=== PATIENT | male | born 1930 | race Caucasian/White ===

== ENCOUNTER 2016-10-10 20:01 | Emergency (ER) | payer OTHER ==
[2016-10-10 20:33] VITALS: BP 134/69; PULSE 51; TEMP 97.5; BMI 20.9
--- NOTE | 2016-10-10 20:36 | PDOC ---
History of Present Illness - General Chief Complaint: Nausea/Vomiting Stated Complaint: Nausea/Vomiting ABD PAIN Time Seen by Provider: 10/10/16 20:32 - History of Present Illness Initial Comments: 10/10/16 21:28 Patient is an 85-year-old male with past medical history of hypertension, BPH, arthritis, dementia, HLD who presents to emergency department today after an episode of vomiting and low blood pressure. He has a his healthcare proxy at the bedside. His healthcare proxy states that this evening at dinner he was eating when he appeared diaphoretic and lightheaded. They brought him back to his room in the [facility] where he vomited and his heart rate was in the 40s. Since patient has been in the emergency department he states that he feels much better he is not nauseous at this time and complains of no abdominal pain. Denies chest pain, shortness of breath, fevers, chills, weakness, malaise, shortness of breath, cough, urgency, dysuria, hematuria, constipation or blood in the stool. Past History - Past Medical History Allergies/Adverse Reactions: Allergies Allergy/AdvReac Type Severity Reaction Status Date / Time No Known Allergies Allergy Verified 10/10/16 21:13 Home Medications: Ambulatory Orders Calcium Carbonate [Calcium] 1 tab PO DAILY 10/10/16 Celecoxib [Celebrex] 200 mg PO DAILY 10/10/16 Cholecalciferol (Vitamin D3) [Vitamin D3 -] 1,000 unit PO DAILY 10/10/16 Donepezil HCl [Aricept] 10 mg PO DAILY 10/10/16 Finasteride 5 mg PO DAILY 10/10/16 Folic Acid 1 tab PO DAILY 10/10/16 Glucosamine Sulfate Dipot Chlr [Glucosamine] 1,000 mg PO BID 10/10/16 Labetalol HCl 100 mg PO BID 10/10/16 Olmesartan/Hydrochlorothiazide [Benicar Hct 40-25 mg Tablet] 1 each PO DAILY [place]-3 Acid Ethyl Esters [Lovaza] 2 g PO BID 10/10/16 Tamsulosin HCl [Flomax] 0.4 mg PO AC 10/10/16 Vitamin B1 600 mg PO BID 10/10/16 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, basal cell left ear) Dementia: Yes HTN: Yes Hypercholesterolemia: Yes Other medical history: bph,arthritis - Surgical History Appendectomy: Yes - Psycho/Social/Smoking Cessation Hx Suicidal Ideation: No Smoking History: Never smoked Review of Systems - Review of Systems Comments:: 10/10/16 21:28 CONSTITUTIONAL: Absent: fever, chills, diaphoresis, generalized weakness, malaise, loss of appetite HEENT: Absent: rhinorrhea, nasal congestion, throat pain, throat swelling, difficulty swallowing, mouth swelling, ear pain, eye pain, visual Changes CARDIOVASCULAR: Absent: chest pain, loss of consciousness, palpitations, irregular heart rate, peripheral edema RESPIRATORY: Absent: cough, shortness of breath, dyspnea with exertion, orthopnea, wheezing, stridor, hemoptysis GASTROINTESTINAL: Absent: abdominal pain, abdominal distension, nausea, vomiting, diarrhea, constipation, melena, hematochezia GENITOURINARY: Absent: dysuria, frequency, urgency, hesitancy, hematuria, flank pain, genital pain MUSCULOSKELETAL: Absent: myalgia, arthralgia, joint swelling SKIN: Absent: rash, itching, pallor HEMATOLOGIC/IMMUNOLOGIC: Absent: easy bleeding, easy bruising, lymphadenopathy, frequent infections ENDOCRINE: Absent: unexplained weight gain, unexplained weight loss, heat intolerance, cold intolerance NEUROLOGIC: Absent: headache, focal weakness or paresthesias, dizziness, unsteady gait, seizure, mental status changes, bladder or bowel incontinence PSYCHIATRIC: Absent: anxiety, depression, suicidal or homicidal ideation, hallucinations. *Physical Exam - Vital Signs Last Vital Signs Temp Pulse Resp BP Pulse Ox 97.5 F L 51 L 18 134/69 98 10/10/16 20:29 10/10/16 20:29 10/10/16 20:29 10/10/16 20:29 10/10/16 20:29 - Physical Exam Comments: 10/10/16 21:28 GENERAL: Well developed, well nourished. Awake and alert. No acute distress. HEENT: Normocephalic, atraumatic. PERRLA, EOMI. No conjunctival pallor. Sclera are non- icteric. Moist mucous membranes. Oropharynx is clear. NECK: Supple. Full ROM. No JVD. Carotid pulses 2+ and symmetric, without bruits. No thyromegaly. No lymphadenopathy. CARDIOVASCULAR: Regular rate and rhythm. III/ holosystolic murmur thorough all cardiac lilly. No rubs, or gallops. Distal pulses are 2+ and symmetric. PULMONARY: No evidence of respiratory distress. Lungs clear to auscultation bilaterally. No wheezing, rales or rhonchi. ABDOMINAL: Soft. Non-tender. Non-distended. No rebound or guarding. No organomegaly. Normoactive bowel sounds. MUSCULOSKELETAL Normal range of motion at all joints. No bony deformities or tenderness. No CVA tenderness. EXTREMITIES: No cyanosis. No clubbing. No edema. No calf tenderness. SKIN: Warm and dry. Normal capillary refill. No rashes. No jaundice. NEUROLOGICAL: Alert, awake, appropriate. Cranial nerves 2-12 intact. No deficits to light touch and temperature in face, upper extremities and lower extremities. No motor deficits in the in face, upper extremities and lower extremities. Normoreflexic in the upper and lower extremities. Normal speech. Toes are down- going bilaterally. Gait is normal without ataxia. PSYCHIATRIC: Cooperative. Good eye contact. Appropriate mood and affect. ED Treatment Course - LABORATORY CBC & Chemistry Diagram: 10/10/16 Unknown 10/10/16 Unknown Medical Decision Making - Medical Decision Making 10/10/16 21:38 Patient is an 85-year-old male with past medical history of hypertension, BPH, arthritis, dementia, HLD who presents to emergency department today after an episode of vomiting and low blood pressure. Patient states that he feels much better at this time. However we will treat this as a episodic vomiting. Visit will rule out ACS, abdominal etiology. 1.CBC, CMP, PT/INR, lipase, cardiac profile, UA, UC 2.EKG, CXR 3.IV fluids 4.reevaluate. 10/10/16 22:15 EKG shows a rate of 59 bpm normal intervals, left axis deviation. Sinus rhythm with a first-degree block. Right bundle branch block. No acute ST-T wave changes. LVH. 10/11/16 00:14 Lab work shows a mildly elevated white blood cell count of 13. Could be a reaction to the vomiting. All other labs are within normal limits at this time. Troponin is negative. Urine was lost in the lab. We'll send a new sample. 10/11/16 01:01 Patient's urine shows no evidence of infection. 10/11/16 01:29 Chest x-ray shows no evidence of infiltration, increased interstitial markings. Patient states he feels much better since arriving in the emergency department. He denies current nausea or vomiting and states that he feels like himself. Given all negative labs, we will discharge home at this time. Most likely a near syncopal event d/t vomiting and dehydration. Patient is to eat a bland diet and drink plenty of fluids for the next 24-48 hours. Given return instructions if he experiences worsening nausea, vomiting weakness, fevers or chills. Patient understands all discharge instructions and all questions were answered at this time. *DC/Admit/Observation/Transfer Diagnosis at time of Disposition: Vomiting Qualifiers: Vomiting type: unspecified Vomiting Intractability: non-intractable Nausea presence: without nausea Qualified Code(s): R11.11 - Vomiting without nausea - Discharge Dispostion Admit: No - Referrals Referrals: Eric Mckenzie [Primary Care Provider] - - Patient Instructions Printed Discharge Instructions: DI for Vomiting -- Adult Additional Instructions: Your work up today was negative. Eat a bland diet and drink plenty of fluids for the next couple of days. Follow up with your primary care doctor tomorrow. If you have worsening vomiting, dizziness, weakness, chills, fevers, or any changes in your symptoms, return to the ED.
[2016-10-10] MEDS ORDERED: SODIUM CHLORIDE 1,000 ML IV STA (20:56)
--- NOTE | 2016-10-10 20:59 | PDOC ---
*Physical Exam - Vital Signs Last Vital Signs Temp Pulse Resp BP Pulse Ox 97.5 F L 51 L 18 134/69 98 10/10/16 20:29 10/10/16 20:29 10/10/16 20:29 10/10/16 20:29 10/10/16 20:29 ED Treatment Course - LABORATORY CBC & Chemistry Diagram: 10/10/16 Unknown 10/10/16 Unknown Medical Decision Making - Medical Decision Making 10/10/16 20:59 agree with care from TASHIA Zamorano *DC/Admit/Observation/Transfer Diagnosis at time of Disposition: Vomiting - Referrals Referrals: Eric Mckenzie [Primary Care Provider] - - Patient Instructions Printed Discharge Instructions: DI for Vomiting -- Adult Additional Instructions: Your work up today was negative. Eat a bland diet and drink plenty of fluids for the next couple of days. Follow up with your primary care doctor tomorrow. If you have worsening vomiting, dizziness, weakness, chills, fevers, or any changes in your symptoms, return to the ED.
[2016-10-10 21:33] LABS: BASOPHIL 0.4 % (0-2.0); EOSINOPHIL 2.9 % (0-4.5); MCH 31.9 pg (25.7-33.7); MCHC 33.2 g/dl (32.0-35.9); MEAN CELL VOLUME 96.2 fl (80-96); MEAN PLT VOLUME 7.2 fl (7.5-11.1); PLATELET COUNT 212 K/MM3 (134-434); RDW 13.4 % (11.9-15.9); WHITE BLOOD COUNT 13.4 K/mm3 (4.0-10.0)
[2016-10-10 21:51] LABS: INR 1.1 (0.82-1.09); PROTHROMBIN TIME (PATIENT) 12.1 SEC (9.98-11.88)
[2016-10-10 22:03] LABS: ALBUMIN 3.7 g/dl (3.4-5.0); ANION GAP 13 (8-16); CALCIUM 9.4 mg/dL (8.5-10.1); CO2 26 mmol/L (21-32); CREATININE 1.1 mg/dL (0.7-1.3); GLUCOSE,RANDOM 100 mg/dL (74-106); SGOT/AST 16 U/L (15-37); SGPT/ALT 16 U/L (12-78)
[2016-10-10 22:05] LABS: ALK PHOS 81 U/L (45-117); BILIRUBIN,TOTAL 0.9 mg/dL (0.2-1.0); TOT PROT 6.6 g/dl (6.4-8.2); TROPONIN I < 0.02 ng/ml (0.00-0.05)
[2016-10-10 22:55] LABS: URINE APPEARANCE CLEAR; URINE BILIRUBIN NEGATIVE (NEGATIVE); URINE BLOOD NEGATIVE (NEGATIVE); URINE COLOR YELLOW; URINE GLUCOSE (UA) NEGATIVE (NEGATIVE); URINE KETONE TRACE (NEGATIVE); URINE LEUK ESTERASE NEGATIVE (NEGATIVE); URINE NITRITE NEGATIVE (NEGATIVE); URINE PROTEIN NEGATIVE (NEGATIVE); URINE UROBILINOGEN NEGATIVE mg/dL (0.2-1.0)
--- NOTE | 2016-10-11 11:53 | EKG ---
Test Reason : Blood Pressure : / mmHG Vent. Rate : 059 BPM Atrial Rate : 059 BPM P-R Int : 238 ms QRS Dur : 160 ms QT Int : 534 ms P-R-T Axes : 053 -42 -82 degrees QTc Int : 528 ms SINUS BRADYCARDIA WITH 1ST DEGREE A-V BLOCK LEFT AXIS DEVIATION RIGHT BUNDLE BRANCH BLOCK LEFT VENTRICULAR HYPERTROPHY WITH REPOLARIZATION ABNORMALITY CANNOT RULE OUT SEPTAL INFARCT , AGE UNDETERMINED ABNORMAL ECG WHEN COMPARED WITH ECG OF 25-MAY-2006 15:59, [place] INTERVAL HAS INCREASED T WAVE INVERSION MORE EVIDENT IN INFERIOR LEADS T WAVE INVERSION NOW EVIDENT IN LATERAL LEADS Confirmed by ARACELI RICHARDSON MD ([id number]) on 10/11/2016 11:53:22 AM Referred By: Confirmed By:ARACELI RICHARDSON MD
== END 2016-10-11 01:03 | disposition home or self-care (01) ==
LOC: JER 20:01
PROC: 3E0337Z Introduction of Electrolytic and Water Balance Substance into Peripheral Vein, Percutaneous Approach (ICD-10-PCS; principal; 2016-10-10)
DX: R11.10 Vomiting, unspecified (principal); I10 Essential (primary) hypertension; N40.0 Benign prostatic hyperplasia without lower urinary tract symptoms; F03.90 Unspecified dementia, unspecified severity, without behavioral disturbance, psychotic disturbance, mood disturbance, and anxiety; M12.9 Arthropathy, unspecified
CPT/HCPCS: 36415; 71020-TC; 80053; 81003; 82550; 83690; 84484; 85025; 85610; 93005; 93010; 99282-25

== ENCOUNTER 2016-12-17 20:14 | Emergency (ER) | payer OTHER ==
[2016-12-17 20:36] VITALS: BP 122/53; PULSE 63; TEMP 98.9; BMI 26.6
--- NOTE | 2016-12-17 20:48 | PDOC ---
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 He is woth another member of his order who saw the pt tripped on his robe. There was no head trauma, No LOC lungs cta b/l cvr [id number] abd soft,nontender extremities- there is a l shaped 5cm laceration above the right elbow. no arm deformity, neurovascularly intact neuro alert, conversant,moving all extremities - Medical Decision Making 12/17/16 20:57 plan wound will be cleansed and closed w sutures.
--- NOTE | 2016-12-17 21:33 | PDOC ---
History of Present Illness - General Chief Complaint: Injury Stated Complaint: FALL Time Seen by Provider: 12/17/16 20:41 History Source: Care Provider - History of Present Illness Initial Comments: 12/17/16 21:32 Patient is an 86 y.o. male with a PMH of Dementia who presents from the [facility] following a mechanical fall. Patient tripped on his robe while walking down a flight of stair scratching his right elbow. Patient denies any head trauma or associated LOC. Past History - Past Medical History Allergies/Adverse Reactions: Allergies Allergy/AdvReac Type Severity Reaction Status Date / Time No Known Allergies Allergy Verified 12/17/16 20:36 Home Medications: Ambulatory Orders Calcium Carbonate [Calcium] 1 tab PO DAILY 10/10/16 Celecoxib [Celebrex] 200 mg PO DAILY 10/10/16 Cholecalciferol (Vitamin D3) [Vitamin D3 -] 1,000 unit PO DAILY 10/10/16 Donepezil HCl [Aricept] 10 mg PO DAILY 10/10/16 Finasteride 5 mg PO DAILY 10/10/16 Folic Acid 1 tab PO DAILY 10/10/16 Glucosamine Sulfate Dipot Chlr [Glucosamine] 1,000 mg PO BID 10/10/16 Labetalol HCl 100 mg PO BID 10/10/16 Olmesartan/Hydrochlorothiazide [Benicar Hct 40-25 mg Tablet] 1 each PO DAILY [place]-3 Acid Ethyl Esters [Lovaza] 2 g PO BID 10/10/16 Tamsulosin HCl [Flomax] 0.4 mg PO AC 10/10/16 Thiamine HCl [Vitamin B1] 600 mg PO BID 10/10/16 Cancer: Yes (squamous cell forearm foot, 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 Knee - Surgical History Abdominal Surgery: Yes (r/o polyp via sigmoidoscopy) Appendectomy: Yes - Immunization History Td Vaccination: No TDAP Vaccination: No Immunization Up to Date: No - Suicide/Smoking/Psychosocial Hx Smoking History: Never smoked Have you smoked in the past 12 months: No Information on smoking cessation initiated: No Hx Alcohol Use: No Drug/Substance Use Hx: No Substance Use Type: None Review of Systems - Review of Systems Able to Perform ROS?: No (Dementia) *Physical Exam - Vital Signs Last Vital Signs Temp Pulse Resp BP Pulse Ox 98.9 F 63 18 122/53 100 12/17/16 20:29 12/17/16 20:29 12/17/16 20:29 12/17/16 20:29 12/17/16 20:29 - Physical Exam General Appearance: Yes: Nourished, Appropriately Dressed Neck: positive: Trachea midline, Supple Extremity: positive: Other (6 cm longitudinal abrasion on R superior to the olecranon; 3.5-4 cm superifical longitudinal abrasion inferior to R olecranon; neurovascularly intact) Medical Decision Making - Medical Decision Making 12/17/16 22:03 Patient is an 86 y.o. male who presents with two R arm laceration following a mechanical fall. Patient's 6 cm laceration was repaired using 4.0 suture with 6 simple interrupted sutures. A smaller more inferior laceration was *DC/Admit/Observation/Transfer - Discharge Dispostion Condition at time of disposition: Fair
[2016-12-17] MEDS ORDERED: TETANUS AND DIPHTHERIA TOXOID 0.5 ML DISP.SYRIN IM ONE (22:05)
== END 2016-12-17 22:21 | disposition home or self-care (01) ==
LOC: JER 20:14
PROC: 3E0234Z Introduction of Serum, Toxoid and Vaccine into Muscle, Percutaneous Approach (ICD-10-PCS; principal; 2016-12-17)
DX: S41.111A Laceration without foreign body of right upper arm, initial encounter (principal); W10.8XXA Fall (on) (from) other stairs and steps, initial encounter; Y93.89 Activity, other specified; Y92.22 Religious institution as the place of occurrence of the external cause; Y99.8 Other external cause status; I10 Essential (primary) hypertension; N40.0 Benign prostatic hyperplasia without lower urinary tract symptoms; M13.861 Other specified arthritis, right knee; F03.90 Unspecified dementia, unspecified severity, without behavioral disturbance, psychotic disturbance, mood disturbance, and anxiety; Z85.828 Personal history of other malignant neoplasm of skin
CPT/HCPCS: 90471; 90715; 99281-25

== ENCOUNTER 2018-03-15 09:35 | Emergency (ER) | payer OTHER ==
--- NOTE | 2018-03-15 09:41 | PDOC ---
History of Present Illness - General Chief Complaint: Injury Stated Complaint: FALL Time Seen by Provider: 03/15/18 09:41 - History of Present Illness Initial Comments: 03/15/18 10:14 The patient is an 87 year old male with a history of HTN, HLD, Dementia, who presents for evaluation following a fall. The patient is accompanied by his aid who assists in providing the history. They note that the patient was getting out of bed this morning when he had an unwitnessed fall with head trauma. They immediately found him and noted that he was conscious. The patient states that he tripped over his feet causing him to fall and did not lose consciousness. The patient also notes some right shoulder pain as well but otherwise denies headache, fevers, chills, SOB, chest pain, nausea, vomiting , abdominal pain, numbness, tingling, or changes with urination or bowel movements. He is currently asymptomatic. Past History - Past Medical History Allergies/Adverse Reactions: Allergies Allergy/AdvReac Type Severity Reaction Status Date / Time No Known Allergies Allergy Verified 03/15/18 10:07 Home Medications: Ambulatory Orders Calcium Carbonate [Calcium] 1 tab PO DAILY 10/10/16 Celecoxib [Celebrex] 200 mg PO DAILY 10/10/16 Cholecalciferol (Vitamin D3) [Vitamin D3 -] 1,000 unit PO DAILY 10/10/16 Donepezil HCl [Aricept] 10 mg PO DAILY 10/10/16 Finasteride 5 mg PO DAILY 10/10/16 Folic Acid 1 tab PO DAILY 10/10/16 Glucosamine Sulfate Dipot Chlr [Glucosamine] 1,000 mg PO BID 10/10/16 Labetalol HCl 100 mg PO BID 10/10/16 Olmesartan/Hydrochlorothiazide [Benicar Hct 40-25 mg Tablet] 1 each PO DAILY [place]-3 Acid Ethyl Esters [Lovaza] 2 g PO BID 10/10/16 Tamsulosin HCl [Flomax] 0.4 mg PO AC 10/10/16 Thiamine HCl [Vitamin B1] 600 mg PO BID 10/10/16 Cancer: Yes (squamous cell forearm foot, 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, basal cell left ear) Dementia: Yes HTN: Yes Hypercholesterolemia: Yes - Surgical History Abdominal Surgery: Yes (r/o polyp via sigmoidoscopy) Appendectomy: Yes - Immunization History Td Vaccination: No TDAP Vaccination: No Immunization Up to Date: No - Suicide/Smoking/Psychosocial Hx Smoking History: Never smoked Have you smoked in the past 12 months: No Hx Alcohol Use: No Drug/Substance Use Hx: No Substance Use Type: None Review of Systems - Review of Systems Comments:: 03/15/18 10:19 Constitutional: No fevers, chills, fatigue, malaise HEENT: No Rhinorrhea, nasal congestion, visual changes Cardiovascular: No chest pain, syncope, palpitations, lightheadedness Respiratory: No Cough, SOB, Hemoptysis, Gastrointestinal: No Abdominal pain, Nausea, Vomiting, Constipation, Diarrhea, Melena Genitourinary: No Dysuria, Frequency, Urgency, Hesitancy, Hematuria, Flank pain Musculoskeletal: Right shoulder pain. No Myalgia, arthralgia Skin: No rashes, itching, bruising, pallor Neurologic: No Headache, Dizziness, Numbness, Weakness, or Tingling Psychiatric: No Hallucinations. No SI or HI *Physical Exam - Physical Exam Comments: 03/15/18 10:20 General Appearance: Nourished. No Apparent Distress HEENT: EOMI, [place]. Abrasion noted to the right forehead and right lip. No Pharyngeal Erythema, Tonsillar Exudate, Tonsillar Erythema Neck: No Cervical Lymphadenopathy or C-spine tenderness. Normal ROM. Respiratory/Chest: Lungs Clear, Normal Breath Sounds. No Crackles, Rales, Rhonchi, Wheezing Cardiovascular: Regular Rhythm, Regular Rate. No Murmur, Gallops, Rubs Gastrointestinal/Abdominal: Normal Bowel Sounds, Soft. No Guarding, Rebound, Tenderness Musculoskeletal: Normal ROM in the right shoulder. No CVA Tenderness Extremity: Normal Capillary Refill Integumentary: Normal Color, Dry, Warm Neurologic: account service representative II-XII NML intact, Fully Oriented, Alert, Normal Mood/Affect, Normal Response, Motor Strength 5/5. No pronator drift. Gait at Baseline. Medical Decision Making - Medical Decision Making 03/15/18 10:21 The patient is an 87 year old male with a history of HTN, HLD, Dementia, who presents for evaluation following a fall. Differential includes but is not limited to: Contusion, Fracture, Intracranial process. Given the patient's history and physical exam, we will obtain a head CT, shoulder plain film, ekg to evaluate further. We will treat the patient with tylenol here in the ED. We will continue to monitor and reassess while here in the ED. *DC/Admit/Observation/Transfer Diagnosis at time of Disposition: Fall Qualifiers: Encounter type: initial encounter Qualified Code(s): W19.XXXA - Unspecified fall, initial encounter - Discharge Dispostion Disposition: HOME Condition at time of disposition: Stable Decision to Admit order: No - Referrals Referrals: Eric Mckenzie [Non Staff, Medical] - - Patient Instructions Printed Discharge Instructions: How to Prevent Falls, DI for Post-traumatic Headache Additional Instructions: Please return to the ER if you experience concerning or worsening symptoms including worsening difficulty breathing, weakness, or chest pain, headache, vomiting. Your xray and CT scan results were normal here in the ER. Please call to schedule a follow up appointment with your primary care provider within 2-3 days to discuss your ER visit and further management of your symptoms. - Post Discharge Activity
[2018-03-15 10:10] VITALS: BMI 23.9
--- NOTE | 2018-03-15 10:10 | PDOC ---
Attending Attestation - Resident Resident Name: Michoacano Thompson - HPI HPI: 03/15/18 10:03 87 y/o male brought into ED by EMS for evaluation s/p fall at assisted living facility. Pt is not offering any complaints.at present although he says his rt shoulder hurts. Pt denies chest pain, sob, dizziness or headache. - Physicial Exam PE: 03/15/18 10:06 HEENT: Pt with superficial abrasion and bruise noted to rt side of forehead, pupils 2mm equal and reactive,pt with small abrasion to rt lower lip Neck: supple , full rom Lungs: + bs jeanie cta Heart S1S2 regular with murmur noted Abd: + bs abd soft no guarding or tenderness Ext: pt with full rom of rt shoulder, l pulses and sensation, brusing noted to both arms old not new Neuro: awake and alert,pt with known dementia,. pt is folowing commands, no pronator drift, nl sensort and motor, pt with antalgic gait thi is his baseline - Medical Decision Making 03/15/18 10:10 87 y/o male brought into ED by EMS for eval s/p fall at home, no loc, no nausea and vomiting, pt not offering any acute complaints says his rt shoulder hurts but has full rom Plan: ct of head, ekg,xray of rt shoulder, tylenol for pain and reevaluate for transfer back to assisted living facility
[2018-03-15] MEDS ORDERED: ACETAMINOPHEN 500 MG TABLET (FP) PO ONE (10:15)
[2018-03-15] MEDS ORDERED: ACETAMINOPHEN 325 MG TABLET (FP) ONE (11:26)
--- NOTE | 2018-03-15 13:25 | EKG ---
Test Reason : Blood Pressure : / mmHG Vent. Rate : 056 BPM Atrial Rate : 056 BPM P-R Int : 260 ms QRS Dur : 152 ms QT Int : 486 ms P-R-T Axes : 051 -37 242 degrees QTc Int : 468 ms SINUS BRADYCARDIA WITH 1ST DEGREE A-V BLOCK LEFT AXIS DEVIATION RIGHT BUNDLE BRANCH BLOCK LEFT VENTRICULAR HYPERTROPHY WITH REPOLARIZATION ABNORMALITY ABNORMAL ECG WHEN COMPARED WITH ECG OF 10-OCT-2016 21:39, QT HAS SHORTENED Confirmed by DYLAN VOGT, ARACELI ([id number]) on 03/15/2018 1:25:05 PM Referred By: Confirmed By:ARACELI RICHARDSON MD
[2018-03-15 15:33] VITALS: BP 148/84; PULSE 78; TEMP 98.3
== END 2018-03-15 15:30 | disposition home or self-care (01) ==
LOC: JER 09:35
DX: S09.8XXA Other specified injuries of head, initial encounter (principal); S00.81XA Abrasion of other part of head, initial encounter; S00.511A Abrasion of lip, initial encounter; W01.0XXA Fall on same level from slipping, tripping and stumbling without subsequent striking against object, initial encounter; Y93.89 Activity, other specified; Y92.092 Bedroom in other non-institutional residence as the place of occurrence of the external cause; Y99.8 Other external cause status; I10 Essential (primary) hypertension; E78.5 Hyperlipidemia, unspecified; F03.90 Unspecified dementia, unspecified severity, without behavioral disturbance, psychotic disturbance, mood disturbance, and anxiety
CPT/HCPCS: 70450-TC; 73030-TC-RT-FY; 93005; 93010; 99282-25

== ENCOUNTER 2018-08-12 08:06 | Inpatient (IN) | payer OTHER | END 2018-08-15 19:05 | disposition home or self-care (01) | LOC: JER 08:06 → JERBED 09:40 → J4S 20:08 ==